=== PATIENT | female | born 1950 | race Caucasian/White ===

== ENCOUNTER 2025-07-09 15:00 | Outpatient (RCR) | payer MEDICARE, SELFPAY | END 2025-08-04 10:21 | disposition home or self-care (01) | LOC: ANHCPREHAB 15:00 | PROVIDERS: PCP Emergency Medicine; Visit Provider Internal Medicine Cardiovascular Disease | DX: Z95.5 Presence of coronary angioplasty implant and graft (principal) | CPT/HCPCS: 93798 ==